=== PATIENT | male | born 1980 | race Caucasian/White ===

== ENCOUNTER → 2017-05-24 | Outpatient (CLI) | payer OTHER ==
[~2017-05-24] MED LIST: ATEN-171 PO; CIPR-255 PO; CYAN1TAB4 PO; MAGN400T6 PO; MULT-262 PO; OXYC-57 PO; PRLSR20 PO; SERT-234 PO
== END | disposition home or self-care (01) ==
LOC: C.LABPVFM 17:44
PROVIDERS: ATTEND Nurse Practitioner Family
DX: J02.9 Acute pharyngitis, unspecified (principal)

== ENCOUNTER → 2017-09-07 | Outpatient (CLI) | payer OTHER ==
--- NOTE | 2017-09-07 12:11 | DIAGNOSTIC IMAGING REPORT ---
R SHOULDER MIN 2 VIEWS ROUTINE HISTORY: 37 years-old Male BACK PAIN acute right shoulder pain status post trauma COMPARISON: Chest radiograph 05/17/2012 TECHNIQUE: 3 views of the right shoulder FINDINGS: No acute fracture, dislocation or significant degenerative changes. Imaged lung mcbride appear clear. No opaque foreign body. IMPRESSION: No acute fracture or dislocation. The above report was generated using voice recognition software. It may contain grammatical, syntax or spelling errors. Electronically signed by: Lan Meléndez M.D. 09/07/2017 12:10 PM Dictated Date/Time: 09/07/2017 12:09 PM
--- NOTE | 2017-09-07 12:14 | DIAGNOSTIC IMAGING REPORT ---
CERVICAL SPINE 2 OR 3 VIEWS HISTORY: 37 years-old Male BACK PAIN acute neck pain COMPARISON: Thoracic lumbar spine radiographs of same day TECHNIQUE: 3 views of the cervical spine FINDINGS: 7 nonrib-bearing cervical type vertebral segments are present. There is no acute fracture, subluxation or significant degenerative changes. No prevertebral soft tissue swelling. Minimal multilevel uncovertebral spurring. Imaged lung apices appear clear. IMPRESSION: No acute fracture or subluxation. The above report was generated using voice recognition software. It may contain grammatical, syntax or spelling errors. Electronically signed by: Lan Meléndez M.D. 09/07/2017 12:12 PM Dictated Date/Time: 09/07/2017 12:11 PM
--- NOTE | 2017-09-07 12:16 | DIAGNOSTIC IMAGING REPORT ---
THORACOLUMBAR SPINE 2 VIEWS HISTORY: 37 years-old Male BACK PAIN acute thoracic and lumbar spine pain COMPARISON: Cervical spine radiographs of same day, CT abdomen and pelvis 10/07/2013 TECHNIQUE: AP and lateral views of the lumbar spine and lower thoracic spine. FINDINGS: There are 5 nonrib-bearing lumbar type vertebral segments present. No acute fracture or subluxation. Mild posterior intervertebral disc space narrowing with spondylitic spurring at L1-L2. The imaged lower thoracic segments appear unremarkable. No spondylolysis or spondylolisthesis identified. Imaged soft tissues appear unremarkable. IMPRESSION: No acute fracture or subluxation. The above report was generated using voice recognition software. It may contain grammatical, syntax or spelling errors. Electronically signed by: Lan Meléndez M.D. 09/07/2017 12:14 PM Dictated Date/Time: 09/07/2017 12:12 PM
== END | disposition home or self-care (01) ==
LOC: C.RADPV 11:45
PROVIDERS: ATTEND Family Medicine
DX: M54.9 Dorsalgia, unspecified (principal); M54.2 Cervicalgia; M25.511 Pain in right shoulder

== ENCOUNTER 2022-06-13 07:57 | Observation (INO) ==
[2022-06-13] MEDS ORDERED: SODIUM CHLORIDE 0.9% 1000ML 1,000 ML IV ONE ×2 (08:37→10:49)
[2022-06-13] MEDS ORDERED: KETOROLAC TROMETHAMINE 15 MG/ML VIAL IV ONE (08:37)
[2022-06-13] MEDS ORDERED: ONDANSETRON INJ 2 MG/ML 2 ML VIAL IV STA (08:40)
--- NOTE | 2022-06-13 08:40 | Emergency Department Note ---
Impression & Plan Urinary frequency, Elevated troponin, Sepsis, Pharyngitis, HTN (hypertension), benign ED Provider Note INFORMANT: Patient and ED PROVIDER(S): Royce Castro MD CHIEF COMPLAINT: Allergic reaction PLAN: Disposition: Admitted Condition: Good Outpatient prescription management: none Referral: None MEDICAL DECISION MAKING: Patient was evaluated. IV was established. Patient was given 1 L normal saline bolus, Toradol, and Zofran. Blood work, urinalysis, and ECG performed. Chest x-ray ordered due to complaints of shortness of breath. Chest x-ray was performed and was negative. The patient was started on additional fluids. His white blood cell count was elevated concerning for infection. Potassium was mildly low and this was repleted. Patient did have an elevated lactate and elevated inflammatory markers. The patient was empirically given antibiotic coverage with Rocephin. He was treated with IV Dilaudid for pain as the Toradol was ineffective. He was found to have a mildly elevated troponin. CT imaging of the neck and abdomen pelvis revealed a pharyngitis but no acute intra- abdominal process. No retropharyngeal or peritonsillar abscesses identified. The patient was found to have a mastoid effusion on the right but has no signs of mastoiditis clinically and his TMs are unremarkable bilaterally. Patient was given a total of 30 mL/kg of saline based upon ideal body weight. There is concerns for sepsis/SIRS but the etiology is not obvious. Cultures are pending. Consultation was made with Dr. Dg Torrez of the [facility] service. Patient was evaluated in the ER for further management. Patient was evaluated in the ER and admitted for further management. Discussed with fishing manager After review of the information above and other included data, I feel the patient requires admission. Triage Nursing notes reviewed and agree them. Vital Signs: reviewed and remarkable for no significant abnormalities Prior /Outside records reviewed: none Differential diagnosis: Pharyngitis, peritonsillar abscess, infection, dehydration, metabolic abnormality, UTI, kidney stone, electrolyte disturbance, hypoxia, cardiac sources, allergic, toxicologic, as well as other pathologies. Diagnostics, as interpreted by me: ECG: Twelve-lead ECG was normal sinus rhythm [address] elevation or depression. No PACs or PVCs Cardiac Monitoring: Cardiac monitoring ordered by me: The patient was placed on continuous cardiac monitoring and observed. It revealed a normal sinus rhythm at 78 beats per minute without ectopy or evidence of dysrhythmia. Medical decision rules: none Imaging studies: Chest x-ray. Findings: A chest x-ray was performed and revealed no pneumothorax, effusion, infiltrate, pulmonary edema, free air under the diaphragm, or wide mediastinum. Impression: No acute disease. CT scan of the neck reveals pharyngitis. No abscess. CT scan of the abdomen and pelvis reveals cholelithiasis but no acute intra- abdominal process. HPI: The patient is a 42 year old male who presents to the Emergency Room with complaints of allergic reaction. Patient was diagnosed clinically with strep pharyngitis as his son was tested positive for strep. Patient developed sore throat and had a televisit last week. He was started on penicillin. The patient also notes the following associated symptoms, continued sore throat, difficulty swallowing, chills, nausea, vomiting, myalgias, back pain, dyspnea on exertion, urinary frequency, weakness. The patient has found no relieving factors. Current pain is rated as 5/10. Patient did not take his morning medication. Pt denies LOC, headache, fevers, visual changes, neck pain, chest pain, abdominal pain,melena, hematochezia, numbness, lymphadenopathy, rash, or other complaints. PAST MEDICAL HISTORY: See Below, HTN PAST SURGICAL HISTORY: See Below, SOCIAL HISTORY: See Below, HOME MEDICATIONS: See Below ALLERGIES: See Below VITALS: See Below PHYSICAL EXAMINATION: GENERAL: Awake, alert, uncomfortable-appearing, in no distress HENT: Normocephalic, atraumatic. Oropharynx unremarkable except for some mild posterior erythema. The uvula is midline. No clinical signs of peritonsillar abscess.. EYES: Normal conjunctiva. Sclera non-icteric. NECK: Inspection normal. Non-tender. Supple. No nuchal rigidity. FROM. No masses. Minimal anterior adenopathy. No gross swelling. No stridor. RESPIRATORY: Clear to auscultation. No wheezes. No rales. Normal respiratory effort. CARDIAC: Normal rate. Normal rhythm. No murmurs. No rubs. Extremities warm and well perfused. Pulses equal. No JVD. GI: Soft, non-distended. No tenderness to palpation. No rebound or guarding. No masses. RECTAL: Deferred. MUSCULOSKELETAL: Atraumatic. Chest examination reveals no tenderness. The back is symmetrical on inspection without obvious abnormality. There is no CVA tenderness to palpation. No joint edema. LOWER EXTREMITIES: Calves are equal size bilaterally and non-tender. No edema. No discoloration. NEURO: Normal sensorium. No sensory or motor deficits noted. SKIN: No rash or jaundice noted. CRITICAL CARE: I have personally spent greater than 30 minutes of critical care time in the direct management of this patient. This includes bedside care, interpretation of diagnostic studies, and testing, discussion with consultants, patient, and family members, and other required patient management activities. This 30 minutes is in excess of all separately billable procedures. Past Med/Surg History Medical History Post concussive syndrome Traumatic brain injury Family History Grandmother (Maternal) Breast cancer Grandmother (Paternal) Myocardial infarction Denies family history of Ovarian cancer Prostate cancer Colorectal cancer Social History Smoking Status: Never smoker Age Started Using Tobacco: 17; Age Quit Using Tobacco: 27; Second Hand Exposure: No; Do You Dip or Chew Tobacco: Yes; Hx Alcohol Use: No Hx Substance Use: No Preferred Language: Swedish Communication Ability: Effective Medical Education Specialist Required: No Beliefs That Will Affect Care: None marital status: Current Living Situation: Family current occupational status: disabled How many Children do You have: 3 Feels Safe at Home: Yes Safety Concerns: Feels Safe At This Time Childhood Exposure to Second-Hand Smoke: Yes Diet: regular caffeine: Yes Dental Care, Regularly: Yes Physical Activity Frequency: 3-4 Times per Week Seatbelt Use: always Sunscreen Use: Yes Assistive Devices: None Allergies Allergies Allergy/AdvReac Type Severity Reaction Status Date / Time Iodinated Contrast Media Allergy Unknown VOMITING Unverified 05/11/22 09:40 zolmitriptan [From Zomig] Allergy Vomiting Unverified 06/13/22 12:10 Gadolinium-Containing AdvReac Verified 06/13/22 12:35 Contrast Medi Home Meds Home Medications Medication Instructions Recorded Confirmed amlodipine 5 mg tablet 5 mg PO BID 06/13/22 06/13/22 omeprazole 20 mg capsule,delayed 40 mg PO DAILY 06/13/22 06/13/22 release Previous Rx's Medication Instructions Recorded atenolol 50 mg tablet 50 mg PO BID #180 tabs 05/11/22 chlorthalidone 25 mg tablet 25 mg PO DAILY #90 tabs 05/11/22 penicillin V potassium 500 mg 500 mg PO BID 10 days #20 tabs 06/07/22 tablet Results & Data (ED) Vital Signs Vital Signs - 24 hr 06/13/22 08:04 06/13/22 08:20 06/13/22 08:44 Temperature 36.8 C Temperature Source Temporal Artery Scan Pulse Rate 106 H 95 H Pulse Rate [Apical] 98 H Respiratory Rate 20 18 Respiratory Effort / Characteristics Non-Labored Spontaneous Respiratory Depth Normal Respiratory Pattern Blood Pressure 170/82 H Blood Pressure [Left Calf] 119/98 Blood Pressure Mean 111 Blood Pressure Mean [Left Calf] 105 Pulse Oximetry 97 98 Oxygen Delivery Method Room Air Room Air Sepsis Recent Fever Within 48 Hours No Sepsis New/Unexplained Change in Mental Status No Sepsis Action Taken by Nursing No Action Required 06/13/22 08:27 06/13/22 09:33 06/13/22 10:42 Temperature Temperature Source Pulse Rate Pulse Rate [Apical] 88 85 Respiratory Rate 18 18 Respiratory Effort / Characteristics Non-Labored Spontaneous Non-Labored Spontaneous Non-Labored Respiratory Depth Normal Normal Normal Respiratory Pattern Regular Blood Pressure Blood Pressure [Left Calf] 130/76 137/79 Blood Pressure Mean Blood Pressure Mean [Left Calf] 94 98 Pulse Oximetry 97 97 Oxygen Delivery Method Room Air Room Air Sepsis Recent Fever Within 48 Hours Sepsis New/Unexplained Change in Mental Status Sepsis Action Taken by Nursing 06/13/22 12:38 Temperature Temperature Source Pulse Rate Pulse Rate [Apical] 75 Respiratory Rate 18 Respiratory Effort / Characteristics Non-Labored Spontaneous Respiratory Depth Normal Respiratory Pattern Blood Pressure Blood Pressure [Left Calf] 137/87 Blood Pressure Mean Blood Pressure Mean [Left Calf] 103 Pulse Oximetry 97 Oxygen Delivery Method Room Air Sepsis Recent Fever Within 48 Hours Sepsis New/Unexplained Change in Mental Status Sepsis Action Taken by Nursing Laboratory Data 06/13/22 08:35 06/13/22 08:35 Lab Results 06/13/22 06/13/22 06/13/22 Range/Units 08:30 08:35 08:35 WBC 14.71 H (4.8-10.8) K/ul RBC 5.24 (4.70-6.10) M/uL Hgb 16.3 (14.0-18.0) g/dl Hct 45.7 (42.0-52.0) % MCV 87.2 (80.0-100.0) fL MCH 31.1 (25.0-34.0) pg MCHC 35.7 (32.0-36.0) g/dL RDW Std Deviation 40.8 (36.4-46.3) fL RDW Coeff of Ysabel 12.8 (11.5-14.5) % Plt Count 246 (130-400) K/uL MPV 9.5 (9.4-12.4) fL Immature Gran % (Auto) 0.7 % Neut % (Auto) 78.9 % Lymph % (Auto) 11.7 % Braxton % (Auto) 7.9 % Eos % (Auto) 0.5 % Baso % (Auto) 0.3 % Neut # (Auto) 11.61 H (1.40-6.50) K/uL Lymph # (Auto) 1.72 (1.2-3.4) K/uL Braxton # (Auto) 1.16 H (0.11-0.59) K/uL Eos # (Auto) 0.07 (0-0.50) K/uL Baso # (Auto) 0.04 (0-0.2) K/uL Immature Gran # (Auto) 0.11 (0.01-0.20) K/uL ESR (0-15) mm/hr Sodium 134 L (136-145) mmol/L Potassium 3.2 L (3.5-5.1) mmol/L Chloride 96 L (98-107) mmol/L Carbon Dioxide 26 (21-32) mmol/L Anion Gap 12 H (3-11) BUN 19 (6-23) mg/dl Creatinine 1.00 (0.6-1.4) mg/dl Est Cr Clr Drug Dosing Not Reportable Est GFR ( Amer) 108.6 ml/min Est GFR (Non-Af Amer) 93.7 ml/min BUN/Creatinine Ratio 19.0 (10-20) Glucose 125 H (70-99(Fasting)) mg/dl Lactate (0.4-2.0) mmol/L Calcium 8.9 (8.6-10.3) mg/dl Total Bilirubin 0.7 (0.2-1.0) mg/dl AST 22 (13-39) U/L ALT 45 (7-52) U/L Alkaline Phosphatase 79 (34-104) U/L Troponin I High Sens 20.2 H (0-20) pg/ml C-Reactive Protein (0-0.5) mg/dl Total Protein 7.9 (6.0-8.3) gm/dl Albumin 4.1 (3.4-5.0) gm/dl Globulin 3.8 (2.5-4.0) gm/dl Albumin/Globulin Ratio 1.1 (0.9-2) Lipase 26 (11-82) U/L Procalcitonin (0-0.5) ng/ml Urine Color Urine Appearance (Clear) Urine pH (4.5-7.5) Ur Specific [place] (1.000-1.030) Urine Protein (Negative) Urine Glucose (UA) (Negative) Urine Ketones (Negative) Urine Blood (Negative) Urine Nitrite (Negative) Urine Bilirubin (Negative) Urine Urobilinogen (Negative) Ur Leukocyte Esterase (Negative) Adenovirus (PCR) Not Detected (NotDetected) B. pertussis DNA (PCR) Not Detected (NotDetected) B.parapertussis DNA PCR Not Detected (NotDetected) Lyme Disease IgG Ab (Negative) Lyme Disease IgM Ab (Negative) C. pneumoniae DNA (PCR) Not Detected (NotDetected) Coronavirus OC43 (PCR) Not Detected (NotDetected) Coronavirus HKU1 (PCR) Not Detected (NotDetected) Coronavirus 229E (PCR) Not Detected (NotDetected) SARS-CoV-2 (PCR) Not Detected (NotDetected) Coronavirus NL63 (PCR) Not Detected (NotDetected) Human Metapneumovir PCR Not Detected (NotDetected) Influenza Type A (PCR) Not Detected (NotDetected) Influenza Type B (PCR) Not Detected (NotDetected) M. pneumoniae (PCR) Not Detected (NotDetected) Parainfluenza 1 (PCR) Not Detected (NotDetected) Parainfluenza 2 (PCR) Not Detected (NotDetected) Parainfluenza 3 (PCR) Not Detected (NotDetected) Parainfluenza 4 (PCR) Not Detected (NotDetected) RSV (PCR) Not Detected (NotDetected) Entero/Rhino (PCR) Not Detected (NotDetected) 06/13/22 06/13/22 06/13/22 Range/Units 09:32 10:22 10:22 WBC (4.8-10.8) K/ul RBC (4.70-6.10) M/uL Hgb (14.0-18.0) g/dl Hct (42.0-52.0) % MCV (80.0-100.0) fL MCH (25.0-34.0) pg MCHC (32.0-36.0) g/dL RDW Std Deviation (36.4-46.3) fL RDW Coeff of Ysabel (11.5-14.5) % Plt Count (130-400) K/uL MPV (9.4-12.4) fL Immature Gran % (Auto) % Neut % (Auto) % Lymph % (Auto) % Braxton % (Auto) % Eos % (Auto) % Baso % (Auto) % Neut # (Auto) (1.40-6.50) K/uL Lymph # (Auto) (1.2-3.4) K/uL Braxton # (Auto) (0.11-0.59) K/uL Eos # (Auto) (0-0.50) K/uL Baso # (Auto) (0-0.2) K/uL Immature Gran # (Auto) (0.01-0.20) K/uL ESR 23 H (0-15) mm/hr Sodium (136-145) mmol/L Potassium (3.5-5.1) mmol/L Chloride (98-107) mmol/L Carbon Dioxide (21-32) mmol/L Anion Gap (3-11) BUN (6-23) mg/dl Creatinine (0.6-1.4) mg/dl Est Cr Clr Drug Dosing Est GFR ( Amer) ml/min Est GFR (Non-Af Amer) ml/min BUN/Creatinine Ratio (10-20) Glucose (70-99(Fasting)) mg/dl Lactate (0.4-2.0) mmol/L Calcium (8.6-10.3) mg/dl Total Bilirubin (0.2-1.0) mg/dl AST (13-39) U/L ALT (7-52) U/L Alkaline Phosphatase (34-104) U/L Troponin I High Sens (0-20) pg/ml C-Reactive Protein 2.99 H (0-0.5) mg/dl Total Protein (6.0-8.3) gm/dl Albumin (3.4-5.0) gm/dl Globulin (2.5-4.0) gm/dl Albumin/Globulin Ratio (0.9-2) Lipase (11-82) U/L Procalcitonin (0-0.5) ng/ml Urine Color Yellow Urine Appearance Clear (Clear) Urine pH 7.5 (4.5-7.5) Ur Specific [place] 1.018 (1.000-1.030) Urine Protein Negative (Negative) Urine Glucose (UA) Negative (Negative) Urine Ketones Negative (Negative) Urine Blood Negative (Negative) Urine Nitrite Negative (Negative) Urine Bilirubin Negative (Negative) Urine Urobilinogen Negative (Negative) Ur Leukocyte Esterase Negative (Negative) Adenovirus (PCR) (NotDetected) B. pertussis DNA (PCR) (NotDetected) B.parapertussis DNA PCR (NotDetected) Lyme Disease IgG Ab (Negative) Lyme Disease IgM Ab (Negative) C. pneumoniae DNA (PCR) (NotDetected) Coronavirus OC43 (PCR) (NotDetected) Coronavirus HKU1 (PCR) (NotDetected) Coronavirus 229E (PCR) (NotDetected) SARS-CoV-2 (PCR) (NotDetected) Coronavirus NL63 (PCR) (NotDetected) Human Metapneumovir PCR (NotDetected) Influenza Type A (PCR) (NotDetected) Influenza Type B (PCR) (NotDetected) M. pneumoniae (PCR) (NotDetected) Parainfluenza 1 (PCR) (NotDetected) Parainfluenza 2 (PCR) (NotDetected) Parainfluenza 3 (PCR) (NotDetected) Parainfluenza 4 (PCR) (NotDetected) RSV (PCR) (NotDetected) Entero/Rhino (PCR) (NotDetected) 06/13/22 06/13/22 06/13/22 Range/Units 10:22 10:28 12:10 WBC (4.8-10.8) K/ul RBC (4.70-6.10) M/uL Hgb (14.0-18.0) g/dl Hct (42.0-52.0) % MCV (80.0-100.0) fL MCH (25.0-34.0) pg MCHC (32.0-36.0) g/dL RDW Std Deviation (36.4-46.3) fL RDW Coeff of Ysabel (11.5-14.5) % Plt Count (130-400) K/uL MPV (9.4-12.4) fL Immature Gran % (Auto) % Neut % (Auto) % Lymph % (Auto) % Braxton % (Auto) % Eos % (Auto) % Baso % (Auto) % Neut # (Auto) (1.40-6.50) K/uL Lymph # (Auto) (1.2-3.4) K/uL Braxton # (Auto) (0.11-0.59) K/uL Eos # (Auto) (0-0.50) K/uL Baso # (Auto) (0-0.2) K/uL Immature Gran # (Auto) (0.01-0.20) K/uL ESR (0-15) mm/hr Sodium (136-145) mmol/L Potassium (3.5-5.1) mmol/L Chloride (98-107) mmol/L Carbon Dioxide (21-32) mmol/L Anion Gap (3-11) BUN (6-23) mg/dl Creatinine (0.6-1.4) mg/dl Est Cr Clr Drug Dosing Est GFR ( Amer) ml/min Est GFR (Non-Af Amer) ml/min BUN/Creatinine Ratio (10-20) Glucose (70-99(Fasting)) mg/dl Lactate 2.8 H* 1.9 (0.4-2.0) mmol/L Calcium (8.6-10.3) mg/dl Total Bilirubin (0.2-1.0) mg/dl AST (13-39) U/L ALT (7-52) U/L Alkaline Phosphatase (34-104) U/L Troponin I High Sens (0-20) pg/ml C-Reactive Protein (0-0.5) mg/dl Total Protein (6.0-8.3) gm/dl Albumin (3.4-5.0) gm/dl Globulin (2.5-4.0) gm/dl Albumin/Globulin Ratio (0.9-2) Lipase (11-82) U/L Procalcitonin 0.10 (0-0.5) ng/ml Urine Color Urine Appearance (Clear) Urine pH (4.5-7.5) Ur Specific [place] (1.000-1.030) Urine Protein (Negative) Urine Glucose (UA) (Negative) Urine Ketones (Negative) Urine Blood (Negative) Urine Nitrite (Negative) Urine Bilirubin (Negative) Urine Urobilinogen (Negative) Ur Leukocyte Esterase (Negative) Adenovirus (PCR) (NotDetected) B. pertussis DNA (PCR) (NotDetected) B.parapertussis DNA PCR (NotDetected) Lyme Disease IgG Ab (Negative) Lyme Disease IgM Ab (Negative) C. pneumoniae DNA (PCR) (NotDetected) Coronavirus OC43 (PCR) (NotDetected) Coronavirus HKU1 (PCR) (NotDetected) Coronavirus 229E (PCR) (NotDetected) SARS-CoV-2 (PCR) (NotDetected) Coronavirus NL63 (PCR) (NotDetected) Human Metapneumovir PCR (NotDetected) Influenza Type A (PCR) (NotDetected) Influenza Type B (PCR) (NotDetected) M. pneumoniae (PCR) (NotDetected) Parainfluenza 1 (PCR) (NotDetected) Parainfluenza 2 (PCR) (NotDetected) Parainfluenza 3 (PCR) (NotDetected) Parainfluenza 4 (PCR) (NotDetected) RSV (PCR) (NotDetected) Entero/Rhino (PCR) (NotDetected) 06/13/22 Range/Units 12:11 WBC (4.8-10.8) K/ul RBC (4.70-6.10) M/uL Hgb (14.0-18.0) g/dl Hct (42.0-52.0) % MCV (80.0-100.0) fL MCH (25.0-34.0) pg MCHC (32.0-36.0) g/dL RDW Std Deviation (36.4-46.3) fL RDW Coeff of Ysabel (11.5-14.5) % Plt Count (130-400) K/uL MPV (9.4-12.4) fL Immature Gran % (Auto) % Neut % (Auto) % Lymph % (Auto) % Braxton % (Auto) % Eos % (Auto) % Baso % (Auto) % Neut # (Auto) (1.40-6.50) K/uL Lymph # (Auto) (1.2-3.4) K/uL Braxton # (Auto) (0.11-0.59) K/uL Eos # (Auto) (0-0.50) K/uL Baso # (Auto) (0-0.2) K/uL Immature Gran # (Auto) (0.01-0.20) K/uL ESR (0-15) mm/hr Sodium (136-145) mmol/L Potassium (3.5-5.1) mmol/L Chloride (98-107) mmol/L Carbon Dioxide (21-32) mmol/L Anion Gap (3-11) BUN (6-23) mg/dl Creatinine (0.6-1.4) mg/dl Est Cr Clr Drug Dosing Est GFR ( Amer) ml/min Est GFR (Non-Af Amer) ml/min BUN/Creatinine Ratio (10-20) Glucose (70-99(Fasting)) mg/dl Lactate (0.4-2.0) mmol/L Calcium (8.6-10.3) mg/dl Total Bilirubin (0.2-1.0) mg/dl AST (13-39) U/L ALT (7-52) U/L Alkaline Phosphatase (34-104) U/L Troponin I High Sens (0-20) pg/ml C-Reactive Protein (0-0.5) mg/dl Total Protein (6.0-8.3) gm/dl Albumin (3.4-5.0) gm/dl Globulin (2.5-4.0) gm/dl Albumin/Globulin Ratio (0.9-2) Lipase (11-82) U/L Procalcitonin (0-0.5) ng/ml Urine Color Urine Appearance (Clear) Urine pH (4.5-7.5) Ur Specific [place] (1.000-1.030) Urine Protein (Negative) Urine Glucose (UA) (Negative) Urine Ketones (Negative) Urine Blood (Negative) Urine Nitrite (Negative) Urine Bilirubin (Negative) Urine Urobilinogen (Negative) Ur Leukocyte Esterase (Negative) Adenovirus (PCR) (NotDetected) B. pertussis DNA (PCR) (NotDetected) B.parapertussis DNA PCR (NotDetected) Lyme Disease IgG Ab Negative (Negative) Lyme Disease IgM Ab Negative (Negative) C. pneumoniae DNA (PCR) (NotDetected) Coronavirus OC43 (PCR) (NotDetected) Coronavirus HKU1 (PCR) (NotDetected) Coronavirus 229E (PCR) (NotDetected) SARS-CoV-2 (PCR) (NotDetected) Coronavirus NL63 (PCR) (NotDetected) Human Metapneumovir PCR (NotDetected) Influenza Type A (PCR) (NotDetected) Influenza Type B (PCR) (NotDetected) M. pneumoniae (PCR) (NotDetected) Parainfluenza 1 (PCR) (NotDetected) Parainfluenza 2 (PCR) (NotDetected) Parainfluenza 3 (PCR) (NotDetected) Parainfluenza 4 (PCR) (NotDetected) RSV (PCR) (NotDetected) Entero/Rhino (PCR) (NotDetected) Administered Medications Hydromorphone HCl (Hydromorphone Inj 0.5 Mg/0.5 Ml Syr) 0.25 mg IV Q4H PRN PRN Reason: Pain, breakthrough 3rd line Stop: 06/27/22 12:43 Last Admin: 06/13/22 13:29 Dose: 0.25 mg Documented By: NMS Vancomycin HCl 2,250 mg/ (Sodium Chloride) 545 mls @ 200 mls/hr IV NOW ONE Stop: 06/13/22 17:58 Last Admin: 06/13/22 16:34 Dose: 200 mls/hr Documented By: GPF Potassium Chloride/Sodium Chloride (Normal Saline W/20 Meq Kcl) 20 meq in 1,000 mls @ 100 mls/hr IV .Q10H MEETA; Protocol Stop: 07/13/22 15:14 Last Admin: 06/13/22 16:34 Dose: 100 mls/hr Documented By: GPF Discontinued Medications Hydromorphone HCl (Hydromorphone Inj 0.5 Mg/0.5 Ml Syr) 0.25 mg IV NOW STA Stop: 06/13/22 09:47 Last Admin: 06/13/22 10:25 Dose: 0.25 mg Documented By: MMZ Sodium Chloride (Nss 1000ml) 1,000 mls @ 999 mls/hr IV .Q1H1M ONE Stop: 06/13/22 09:37 Last Infusion: 06/13/22 10:21 Dose: 0 mls/hr Documented By: Admin: 06/13/22 08:43 Dose: 999 mls/hr Documented By: MMZ Potassium Chloride (K Oj / Wtr) 10 meq in 100 mls @ 100 mls/hr IV ONE ONE; Protocol Stop: 06/13/22 10:48 Last Infusion: 06/13/22 11:45 Dose: 0 mls/hr Documented By: Admin: 06/13/22 10:25 Dose: 100 mls/hr Documented By: MMZ Sodium Chloride (Nss 1000ml) 1,000 mls @ 999 mls/hr IV .Q1H1M ONE Stop: 06/13/22 11:49 Last Infusion: 06/13/22 11:59 Dose: 0 mls/hr Documented By: Admin: 06/13/22 10:55 Dose: 999 mls/hr Documented By: NMS Ceftriaxone Sodium (Rocephin) 2,000 mg in 70 mls @ 140 mls/hr IV NOW STA Stop: 06/13/22 11:29 Last Infusion: 06/13/22 12:21 Dose: 0 mls/hr Documented By: Admin: 06/13/22 11:45 Dose: 140 mls/hr Documented By: NMS Sodium Chloride (Nss 1000ml) 500 mls @ 999 mls/hr IV .Q31M ONE Stop: 06/13/22 12:44 Last Infusion: 06/13/22 13:12 Dose: 0 mls/hr Documented By: Admin: 06/13/22 12:39 Dose: 999 mls/hr Documented By: NATHANIEL Ketorolac Tromethamine (Ketorolac Tromethamine 15 Mg/Ml Vial) 15 mg IV NOW ONE Stop: 06/13/22 08:38 Last Admin: 06/13/22 08:44 Dose: 15 mg Documented By: SHANTE Ondansetron HCl (Ondansetron Inj 2 Mg/Ml 2 Ml Vial) 4 mg IV NOW STA Stop: 06/13/22 08:41 Last Admin: 06/13/22 08:44 Dose: 4 mg Documented By: SHANTE Imaging Data Radiologist's Impression: Chest X-Ray 06/13/22 08:37 XR chest 1V portable HISTORY: Short of breath. Difficulty swallowing. COMPARISON: Chest 11/08/2018. FINDINGS: Small left basilar linear density favors subsegmental atelectasis or scarring. Otherwise, the lungs are clear. No pleural effusions. No pneumothorax. The heart is normal in size. There are low lung volumes. IMPRESSION: No acute process. ACT 112: Negative or not required by law. Electronically signed by: Bakari Nelson M.D. 06/13/2022 8:53 AM Abdomen/Pelvis CT 06/13/22 09:[address] WITHOUT CONTRAST CT DOSE: 2088.88 mGy.cm HISTORY: Acute bilateral flank pain with sepsis flank pain, sepsis TECHNIQUE: Multiaxial CT images of the abdomen and pelvis were performed without contrast. A dose lowering technique was utilized adhering to the principles of ALARA. COMPARISON STUDY: 10/07/2013 FINDINGS: Mild linear subsegmental atelectasis versus scarring of the lingula. There are a few benign-appearing solid nodules left lung base measuring up to 2- 3 mm. No pneumatosis or pneumoperitoneum. Unremarkable unenhanced spleen, pancreas and left adrenal gland. 2.7 cm right adrenal myelolipoma. Hepatic keratosis without evidence of cirrhosis. Cholelithiasis without CT evidence of acute cholecystitis. No renal calculi or hydronephrosis. Slightly increased attenuation of the renal pyramids may be secondary to dehydration. Decompressed urinary bladder with mild wall thickening. Minimal atherosclerosis of the aorta without aneurysm or adenopathy. No bowel obstruction or bowel wall thickening. Trace free pelvic fluid. Mild colonic fecal retention. The appendix is not diagnostically visualized. No secondary signs of acute appendicitis. There is mild wall thickening of the ascending colon which is likely secondary to partial distention. Unremarkable soft tissues. No acute fracture. IMPRESSION: 1. No bowel obstruction or bowel wall thickening identified. 2. Nonvisualization of the appendix. No secondary signs of acute appendicitis. 3. No urolithiasis or hydronephrosis. 4. Hepatic steatosis. 5. Cholelithiasis. ACT 112: Negative or not required by law. The above report was generated using voice recognition software. It may contain grammatical, syntax or spelling errors. Electronically signed by: Evert Meléndez M.D. 06/13/2022 11:06 AM Soft Tissue Neck CT 06/13/22 09:46 CT soft tissue neck wo con CT DOSE: CLINICAL HISTORY: sore throat, sepsis TECHNIQUE: Multiaxial CT images of the neck were performed without contrast. Sagittal and coronal reformations were performed at the workstation by the radiologist. A dose lowering technique was utilized adhering to the principles of ALARA. COMPARISON STUDY: None. FINDINGS: The visualized brain parenchyma and orbits are unremarkable. The pterygopalatine fossa and paratracheal fat spaces are well-maintained. Mild hypertrophy of the adenoid, palatine, lingual tonsils. No definite abscess on this noncontrast study. No masses identified. No significant airway compromise. No pneumothorax. The lung apices are clear. No acute fractures identified. The paranasal sinuses and left mastoid air cells are clear. There is complete opacification of the right middle ear cavity and right mastoid air cells. The parotid and submandibular glands appear symmetric. No lymphadenopathy identified within the neck. Prevertebral soft tissues and the epiglottis are normal in thickness. IMPRESSION: 1. Mild prominence of the adenoid, palatine, and lingual tonsils suggestive of a tonsillitis. 2. No abscess or masses identified within the neck. 3. No significant lymphadenopathy. 4. Right middle ear cavity/mastoid effusion. ACT 112: Negative or not required by law. Electronically signed by: Bakari Nelson M.D. 06/13/2022 11:04 AM Lumbar Spine MRI 06/13/22 12:35 MRI OF THE LUMBAR SPINE WITHOUT IV CONTRAST CLINICAL HISTORY: Low back pain. COMPARISON STUDY: Abdominal CT dated 06/13/2022. TECHNIQUE: MRI of the lumbar spine was performed utilizing various T1 and T2- weighted sequences in the axial and sagittal planes. IV contrast was not administered for this examination. FINDINGS: Lumbar spine: Vertebral body height and alignment are maintained throughout the lumbar spine. Normal marrow signal intensity is preserved throughout the visualized bony structures. The transverse and spinous processes appear intact. There is no evidence of spondylolysis. No destructive bony lesion is seen. Intervertebral discs: Normal in height and signal intensity. Spinal cord: The visualized spinal cord is normal in morphology and signal intensity. The conus medullaris terminates at the level of L1. The nerve roots of the cauda equina are normal in morphology and signal intensity. There is no evidence of epidural fluid collection. L1-L2: Unremarkable. L2-L3: Unremarkable. L3-L4: Unremarkable. L4-L5: Mild facet arthropathy is of no consequence. The central canal and neural foramina are patent. L5-S1: There is a tiny posterior disc osteophyte complex. No acquired compromise of the central canal is seen. Lateral disc bulge contributes to minimal bilateral subarticular stenosis. In conjunction with facet arthropathy, there is minimal bilateral neural foraminal narrowing. Sacrum: The visualized sacrum is normal in morphology and signal intensity. Soft tissues: The paraspinous soft tissues are normal as visualized. The retroperitoneal structures are grossly unremarkable but incompletely evaluated. IMPRESSION: 1. There is no disc herniation, central canal stenosis, or neural foraminal narrowing throughout the lumbar spine. 2. No destructive bony process is seen. Dictated: 06/13/2022 2:26 PM Transcribed: 06/13/2022 2:39 PM Elizabeth [id number] Yinka [id number] Electronically signed by: Nasir Queen M.D. 06/13/2022 2:51 PM Discharge Plan Visit Data Chief Complaint: Allergic Reaction Stated Complaint: SOB, ALLERGIC REACTION TO MEDS ED Provider: Royce Castro Discharge Problem: Urinary frequency, Elevated troponin, Sepsis, Pharyngitis, HTN (hypertension), benign Patient Disposition: Admitted As Inpatient Discharge Instructions Interventions: ED Discharge Assessment Last Done: 06/13/22 13:46
--- NOTE | 2022-06-13 08:54 | XRay Report ---
XR chest 1V portable HISTORY: Short of breath. Difficulty swallowing. COMPARISON: Chest 11/08/2018. FINDINGS: Small left basilar linear density favors subsegmental atelectasis or scarring. Otherwise, t he lungs are clear. No pleural effusions. No pneumothorax. The heart is normal in size. There are low lung volumes. IMPRESSION: No acute process. ACT 112: Negative or not required by law. Electronically signed by: Bakari Nelson M.D. 06/13/2022 8:53 AM
[2022-06-13 08:58] LABS: Basophils # (auto) 0.04 K/uL (0-0.2); Basophils % (auto) 0.3 %; Eosinophils # (auto) 0.07 K/uL (0-0.50); Eosinophils % (auto) 0.5 %; Hematocrit (blood only) 45.7 % (42.0-52.0); Hemoglobin 16.3 g/dl (14.0-18.0); Immature Granulocytes # (auto) 0.11 K/uL (0.01-0.20); Immature Granulocytes % (auto) 0.7 %; Lymphocytes # (auto) 1.72 K/uL (1.2-3.4); Lymphocytes % (auto) 11.7 %; Mean Corpuscular Hemoglobin 31.1 pg (25.0-34.0); Mean Corpuscular Hgb Conc 35.7 g/dL (32.0-36.0); Mean Corpuscular Volume 87.2 fL (80.0-100.0); Mean Platelet Volume 9.5 fL (9.4-12.4); Monocytes # (auto) 1.16 K/uL (0.11-0.59); Monocytes % (auto) 7.9 %; Neutrophils # (auto) 11.61 K/uL (1.40-6.50); Neutrophils % (auto) 78.9 %; Platelet Count 246 K/uL (130-400); RDW Coefficient of Variation 12.8 % (11.5-14.5); RDW Standard Deviation 40.8 fL (36.4-46.3); Red Blood Count 5.24 M/uL (4.70-6.10); White Blood Count 14.71 K/ul (4.8-10.8)
[2022-06-13 09:16] LABS: Alanine Aminotransferase 45 U/L (7-52); Albumin Globulin Ratio 1.1 (0.9-2); Albumin Level 4.1 gm/dl (3.4-5.0); Alkaline Phosphatase 79 U/L (34-104); Anion Gap 12 (3-11); Aspartate Aminotransferase 22 U/L (13-39); Bilirubin,Total 0.7 mg/dl (0.2-1.0); Blood Urea Nitrogen 19 mg/dl (6-23); Calcium 8.9 mg/dl (8.6-10.3); Carbon Dioxide 26 mmol/L (21-32); Chloride 96 mmol/L (98-107); Est GFR (African American) 108.6 ml/min; Est GFR (Non-African American) 93.7 ml/min; Globulin 3.8 gm/dl (2.5-4.0); Glucose 125 mg/dl (70-99(Fasting)); Lipase 26 U/L (11-82); Potassium 3.2 mmol/L (3.5-5.1); Sodium 134 mmol/L (136-145); Total Protein 7.9 gm/dl (6.0-8.3)
[2022-06-13 09:21] LABS: Troponin I High Sensitivity 20.2 pg/ml (0-20)
[2022-06-13 09:44] LABS: Appearance Urine Clear (Clear); Bilirubin Urine Negative (Negative); Blood Urine Negative (Negative); Color Urine Yellow; Glucose Urine UA Negative (Negative); Ketones Urine Negative (Negative); Leukocyte Esterase Urine Negative (Negative); Nitrite Urine Negative (Negative); Protein Urine Negative (Negative); Specific Gravity Urine 1.018 (1.000-1.030); Urobilinogen Urine Negative (Negative); pH Urine 7.5 (4.5-7.5)
[2022-06-13] MEDS ORDERED: HYDROmorphone INJ 0.5 MG/0.5 ML SYR IV STA (09:46)
[2022-06-13] MEDS ORDERED: POTASSIUM CHLORIDE / WTR 10 MEQ/100 ML PLCT IV ONE (09:49)
[2022-06-13 09:54] LABS: Adenovirus PCR Not Detected (NotDetected); Bordetella parapertussis PCR Not Detected (NotDetected); Bordetella pertussis PCR Not Detected (NotDetected); Chlamydia pneumoniae PCR Not Detected (NotDetected); Coronavirus 229E PCR Not Detected (NotDetected); Coronavirus CoV-2 (COVID19)PCR Not Detected (NotDetected); Coronavirus HKU1 PCR Not Detected (NotDetected); Coronavirus NL63 PCR Not Detected (NotDetected); Coronavirus OC43PCR Not Detected (NotDetected); Human Metapneumovirus PCR Not Detected (NotDetected); Influenza A PCR Not Detected (NotDetected); Influenza B PCR Not Detected (NotDetected); Mycoplasma pneumoniae PCR Not Detected (NotDetected); Parainfluenza Virus 1 PCR Not Detected (NotDetected); Parainfluenza Virus 2 PCR Not Detected (NotDetected); Parainfluenza Virus 3 PCR Not Detected (NotDetected); Parainfluenza Virus 4 PCR Not Detected (NotDetected); Respiratory Syncytial VirusPCR Not Detected (NotDetected); Rhinovirus/Enterovirus PCR Not Detected (NotDetected)
[2022-06-13] MEDS ORDERED: cefTRIAXone SODIUM 2,000 MG/70 ML BAG IV STA (11:00)
--- NOTE | 2022-06-13 11:07 | CT Scan Report ---
CT soft tissue neck wo con CT DOSE: CLINICAL HISTORY: sore throat, sepsis TECHNIQUE: Multiaxial CT images of the neck were performed without contrast. Sagittal and coronal ref ormations were performed at the workstation by the radiologist. A dose lowering technique was utiliz ed adhering to the principles of ALARA. COMPARISON STUDY: None. FINDINGS: The visualized brain parenchyma and orbits are unremarkable. The pterygopalatine fossa and paratracheal fat spaces are well-maintained. Mild hypertrophy of the adenoid, palatine, lingual tonsi ls. No definite abscess on this noncontrast study. No masses identified. No significant airway compro mise. No pneumothorax. The lung apices are clear. No acute fractures identified. The paranasal sinuse s and left mastoid air cells are clear. There is complete opacification of the right middle ear cavit y and right mastoid air cells. The parotid and submandibular glands appear symmetric. No lymphadenopa thy identified within the neck. Prevertebral soft tissues and the epiglottis are normal in thickness. IMPRESSION: 1. Mild prominence of the adenoid, palatine, and lingual tonsils suggestive of a tonsillitis. 2. No abscess or masses identified within the neck. 3. No significant lymphadenopathy. 4. Right middle ear cavity/mastoid effusion. ACT 112: Negative or not required by law. Electronically signed by: Bakari Nelson M.D. 06/13/2022 11:04 AM
--- NOTE | 2022-06-13 11:07 | CT Scan Report ---
ABDOMEN AND PELVIS CT WITHOUT CONTRAST CT DOSE: 2088.88 mGy.cm HISTORY: Acute bilateral flank pain with sepsis flank pain, sepsis TECHNIQUE: Multiaxial CT images of the abdomen and pelvis were performed without contrast. A dose lo wering technique was utilized adhering to the principles of ALARA. COMPARISON STUDY: 10/07/2013 FINDINGS: Mild linear subsegmental atelectasis versus scarring of the lingula. There are a few benign -appearing solid nodules left lung base measuring up to 2-3 mm. No pneumatosis or pneumoperitoneum. U nremarkable unenhanced spleen, pancreas and left adrenal gland. 2.7 cm right adrenal myelolipoma. Hep atic keratosis without evidence of cirrhosis. Cholelithiasis without CT evidence of acute cholecystit is. No renal calculi or hydronephrosis. Slightly increased attenuation of the renal pyramids may be secon zechariah to dehydration. Decompressed urinary bladder with mild wall thickening. Minimal atherosclerosis of the aorta without aneurysm or adenopathy. No bowel obstruction or bowel wall thickening. Trace free pelvic fluid. Mild colonic fecal retention. The appendix is not diagnostically visualized. No secondary signs of acute appendicitis. There is mi ld wall thickening of the ascending colon which is likely secondary to partial distention. Unremarkab le soft tissues. No acute fracture. IMPRESSION: 1. No bowel obstruction or bowel wall thickening identified. 2. Nonvisualization of the appendix. No secondary signs of acute appendicitis. 3. No urolithiasis or hydronephrosis. 4. Hepatic steatosis. 5. Cholelithiasis. ACT 112: Negative or not required by law. The above report was generated using voice recognition software. It may contain grammatical, syntax o r spelling errors. Electronically signed by: Evert Meléndez M.D. 06/13/2022 11:06 AM
--- NOTE | 2022-06-13 11:44 | History & Physical Report ---
Date of Service June 13, 2022 Assessment & Plan (1) Leukocytosis: Plan: SIRS, unclear source, acute with evidence of tissue hypoperfusion - Leukocytosis 14.71 with neutrophilic predominance, ESR 23, CRP 2.99 Lactate elevated on admission, received 30 cc of ideal body weight bolus with repeat pending. Subsequent lactate repeat normalized. Blood cultures drawn Rocephin ordered in ER. Given concern for pharyngitis/gram-positive infection and subsequent development of rigors and lumbar pain vancomycin added while pending evaluation for discitis/abscess CTA/P: Mild bladder thickening with uninfected appearing UA. Otherwise no acute findings CTneck:Tonsillitis without abscess or masses, without significant lymphadenopathy, right middle ear effusion. Patient without ear pain clinically - No transaminitis. Plt normal. - hs trop 20.2. Patient denies chest pain. EKG is with normal sinus rhythm, no territorial ST or T wave changes. QTc 418 - respiratory biofire negative Follow blood cultures, MRI and L-spine pending Lyme adjunct added UA uninfected appearing Pro-Craig normal CXR without evidence of pneumonia BioFire respiratory negative ? Seizure versus pseudoseizure activity Patient reports a longstanding history of seizure or seizure-like activity, with 2 episodes of loss consciousness per day which she can sometimes "fight off "but sometimes is unconscious and confused after. Girlfriend reports some shaking which improves after [facility], [facility] are not currently available. Reports that he did not tolerate Keppra or Topamax. Was on another medicine with ID thinks may be Depakote, but has not been on this for many months" had a [facility] the [facility] ". Notes that it has never been clear whether he is having seizures or not, has been told that he has concussion induced or potentially pain induced "brain shutdown". Is agreeable to record request, these are pending. In the meantime we will continue on seizure precautions. If seizure activity is noted, will obtain EEG and load with Depakote otherwise will defer until records/dosing/history are available. The has been requested from [facility] and are pending fax Ativan on-call Seizure precautions GERD Continue PPI convert to Protonix while inpatient Hypertension Continue home meds, normotensive at bedside. Hold if hypotensive. 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 Patient reports that he has chronic memory issues, forgetfulness, and possible seizures versus brain shutdown since this. He has a significant anxiety component for which she does not take any medications. Follow clinically, seizure monitoring and evaluation as above. Hydroxyzine twice daily as needed for anxiety DVT prophylaxis: SCDs, Lovenox Diet: Heart healthy, may advance once MRI is resulted. If significant abnormalities keep n.p.o. Disposition: Medical telemetry CODE STATUS: Full code (2) GERD (gastroesophageal reflux disease): (3) HTN (hypertension), benign: (4) Post concussive syndrome: (5) Elevated troponin: History of Present Illness Primary Care Provider: Chantal Christopher MD 42yo M with a PMHx of contrast allergy (vomiting no rash), GERD, HTN, Post- concussive syndrome who presents with concern for generalized illness, myalgia, back pain, increased inflammatory markers, and leukocytosis with exposure to strep phayngitis and not improving after starting oral penicillin. CT-Neck: 1. Mild prominence of the adenoid, palatine, and lingual tonsils suggestive of a tonsillitis. 2. No abscess or masses identified within the neck. 3. No significant lymphadenopathy. 4. Right middle ear cavity/mastoid effusion. CT-A/P: 1. No bowel obstruction or bowel wall thickening identified. 2. Nonvisualization of the appendix. No secondary signs of acute appendicitis.3. No urolithiasis or hydronephrosis. 4. Hepatic steatosis.5. Cholelithiasis. Son had strep last week, pt subsequently developed sore throat/ pharnyngitis. Called his PCP and based on son having strep+ pharyngitis pt was put on PCN. Took 1 dose of leftover amoxicillin prior to PCN prior to PCP evaluation knowing his son had strep. Improved initially, then suddenly worsened. Continues to have generalized pain/myalgia, chills, nausea/vomiting. Hives, no lip or tongue swelling. Has had increasing back pain. Stas reports 'I had strep throat a while ago. I made an appointment since my kids had it an improved with amoxicillin.' Had one dose left over and took it prior to seeing PCP. Doc prescribed PCN instead and pt got worse, didn't know if it was a PCN allergy but knew he tolerated IM pcn while in the [place]. He had shaking sweating chills at night 2 nights ago. [place] a little improved yesterday daytime, but last night got much worse with fevers, chills, shaking sweat, and severe pain in his lower back which is new and he has not experienced before. 'Every time I pee it hurts way worse afterwords.' Low mid back pain worse in the middle but spreading out towards the flank bilaterally. Shivering, shaking, and with muscle fatigue overnight. This morning he felt like he couldn't get a full breath and was very tired with an extremely sore throat. No cough. He feels slightly shrot of breath when talking 'like a fat traci walking up the steps.' No chest pain at any point 'but throat is sucky and hurts.' sore throat did improve for a day after bein prescribed pcn on 06/07 but quickly worsened in the days after that. No history of back pain or problems before. Hx of shoulder pain from the gym, but no hx of back issues. No weakness in the legs. No numbness or tingling. denies dysuria, but after peeing gets a wave of pain that spread through his back. No difficulty getting stream started, but has difficulty with dribbling recently. Poor PO intake in last 3-4 days. Is hungry. Thrown up 3x without blood/melena. Nause seems to have improved/ WBC high, lactate up, inflammatory markers elevated. Hx HTN --> Atenolol and hctz GERD --> on Omeprazole. Previously on seizure medications, has not taken is 3 months. Has no talked to Dr. Christopher because 'had a falling out with [facility] and [facility]' Did no do well on topamax, not keppra, Has ~ 2 seizures per day. last 15min-1 hour. Goes out and then wakes up and is confused after. 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 [facility] not follow with [facility], has been frustrated with care there. Has some sharpnel in L knee with no issues, not recommended for removal by [facility]. Has been there for 2004. Has had MRIs before and did not have any problems because of this. Medical History: Reviewed Medications: Reviewed Surgical History: Reviewed Family history: Reviewed Allergies: Reviewed. +Contrast allergy. No known antibiotic allergies. Social History: No tobacco use, no etoh use. Code Status: Full Code Allergies Allergy/AdvReac Type Severity Reaction Status Date / Time Iodinated Contrast Media Allergy Unknown VOMITING Unverified 05/11/22 09:40 zolmitriptan [From Zomig] Allergy Vomiting Unverified 06/13/22 12:10 Gadolinium-Containing AdvReac Verified 06/13/22 12:35 Contrast Medi Home Medications Medication Instructions Recorded Confirmed Type atenolol 50 mg tablet 50 mg PO BID #180 tabs 05/11/22 06/13/22 Rx chlorthalidone 25 mg tablet 25 mg PO DAILY #90 tabs 05/11/22 06/13/22 Rx penicillin V potassium 500 mg 500 mg PO BID 10 days #20 tabs 06/07/22 06/13/22 Rx tablet amlodipine 5 mg tablet 5 mg PO BID 06/13/22 06/13/22 History omeprazole 20 mg capsule,delayed 40 mg PO DAILY 06/13/22 06/13/22 History release Past Med/Surg History Medical History Post concussive syndrome Traumatic brain injury Family History Grandmother (Maternal) Breast cancer Grandmother (Paternal) Myocardial infarction Denies family history of Ovarian cancer Prostate cancer Colorectal cancer Social History Smoking Status: Never smoker Age Started Using Tobacco: 17; Age Quit Using Tobacco: 27; Second Hand Exposure: No; Do You Dip or Chew Tobacco: Yes; Hx Alcohol Use: No Hx Substance Use: No Preferred Language: Yi Communication Ability: Effective Machine Grinder Required: No marital status: Current Living Situation: Family and Significant Other current occupational status: disabled How many Children do You have: 3 Feels Safe at Home: Yes Childhood Exposure to Second-Hand Smoke: Yes Diet: regular caffeine: Yes Dental Care, Regularly: Yes Physical Activity Frequency: 3-4 Times per Week Seatbelt Use: always Sunscreen Use: Yes Review of Systems Review of Systems: All systems reviewed & are unremarkable except as noted in HPI & below Physical Exam Physical Exam: General: A&Ox3. NAD. Cooperative. HEENT: Atraumatic, normocephalic. vision/hearing intact. Posterior pharynx erythematous withotu exudate. Pulm: CTAB A&P. -wheezes, -rales, -rhonchi. Symmetrical chest rise. No increased work of breathing. No respiratory distress. Cardiac: RRR, -mrg. Radial pulses intact and symmetrical. Abdominal: Nontender, nondistended, soft. BS present. Spine: Severe TTP overlying lumbar spine with radiation to paraspinal muscles bilaterally. Commercial Service Technician strength, ankle dorsi/plantarflexion, hip flexion, elbow flexion/extension 5/5. Sensation to soft touch intact in hands, feet, and no saddle anesthesia is present. Results & Data Results & Data Vital Signs (Past 12 Hours) Vital Signs Temp Pulse Pulse Resp BP BP Pulse Ox 06/13/22 10:42 85 18 137/79 97 06/13/22 09:33 88 18 130/76 97 06/13/22 08:44 98 H 18 119/98 98 06/13/22 08:20 95 H 06/13/22 08:04 36.8 C 106 H 20 170/82 H 97 O2 Del Method 06/13/22 10:42 Room Air 06/13/22 09:33 Room Air 06/13/22 08:44 Room Air 06/13/22 08:20 06/13/22 08:04 Room Air PG Care Time/CCT Total # of Minutes Spent Total Time Spent with Patient: Total time spent is greater than 50% in coordination of care (as documented) at patient's floor/unit and/or counseling patient: Coding Level of Care Code 32109 INT INP/OBS CARE 3/75MIN Diagnoses Leukocytosis D72.829 GERD (gastroesophageal reflux disease) K21.9 HTN (hypertension), benign I10 Post concussive syndrome F07.81 Elevated troponin R77.8
[2022-06-13] MEDS ORDERED: SODIUM CHLORIDE 0.9% 1000ML 500 ML IV ONE (12:14)
[2022-06-13] MEDS ORDERED: ACETAMINOPHEN 500 MG TAB PO PRN (12:44)
[2022-06-13 13:09] LABS: Lyme Ab IgG w/WB Rflx Negative (Negative); Lyme Ab IgM w/WB Rflx Negative (Negative)
[2022-06-13] MEDS: HYDROmorphone INJ 0.5 MG/0.5 ML SYR IV PRN ×3 (13:29→21:55)
--- NOTE | 2022-06-13 14:53 | Magnetic Resonance Report ---
MRI OF THE LUMBAR SPINE WITHOUT IV CONTRAST CLINICAL HISTORY: Low back pain. COMPARISON STUDY: Abdominal CT dated 06/13/2022. TECHNIQUE: MRI of the lumbar spine was performed utilizing various T1 and T2-weighted sequences in th e axial and sagittal planes. IV contrast was not administered for this examination. FINDINGS: Lumbar spine: Vertebral body height and alignment are maintained throughout the lumbar spine. Normal marrow signal intensity is preserved throughout the visualized bony structures. The transverse and sp inous processes appear intact. There is no evidence of spondylolysis. No destructive bony lesion is s een. Intervertebral discs: Normal in height and signal intensity. Spinal cord: The visualized spinal cord is normal in morphology and signal intensity. The conus medul nicolás terminates at the level of L1. The nerve roots of the cauda equina are normal in morphology and signal intensity. There is no evidence of epidural fluid collection. L1-L2: Unremarkable. L2-L3: Unremarkable. L3-L4: Unremarkable. L4-L5: Mild facet arthropathy is of no consequence. The central canal and neural foramina are patent. L5-S1: There is a tiny posterior disc osteophyte complex. No acquired compromise of the central canal is seen. Lateral disc bulge contributes to minimal bilateral subarticular stenosis. In conjunction w ith facet arthropathy, there is minimal bilateral neural foraminal narrowing. Sacrum: The visualized sacrum is normal in morphology and signal intensity. Soft tissues: The paraspinous soft tissues are normal as visualized. The retroperitoneal structures a re grossly unremarkable but incompletely evaluated. IMPRESSION: 1. There is no disc herniation, central canal stenosis, or neural foraminal narrowing throughout the lumbar spine. 2. No destructive bony process is seen. Dictated: 06/13/2022 2:26 PM Transcribed: 06/13/2022 2:39 PM Elizabeth [id number] RACHID_Familia [id number] Electronically signed by: Nasir Queen M.D. 06/13/2022 2:51 PM
[2022-06-13] MEDS ORDERED: ONDANSETRON INJ 2 MG/ML 2 ML VIAL IV PRN (15:02)
[2022-06-13] MEDS ORDERED: hydrOXYzine HCl 10 MG TAB PO PRN (15:02)
[2022-06-13] MEDS ORDERED: ACETAMINOPHEN 325 MG TAB PO PRN (15:02)
[2022-06-13] MEDS ORDERED: VANCOMYCIN CONSULT ACTIVE PRN (15:02)
[2022-06-13] MEDS ORDERED: LORazepam 2 MG/1 ML VIAL IV PRN (15:02)
[2022-06-13] MEDS ORDERED: VANCOMYCIN HCL 2,250 MG in SODIUM CHLORIDE 0.9% 500 ML IV ONE (15:15)
--- NOTE | 2022-06-13 16:22 | Pharmacy Report ---
Pharmacy PK ABX Note - Date of Service June 13, 2022 - Assessment and Plan Assessment 42 year old M receiving vancomycin/ceftriaxone x1 for treatment of SIRS (unclear source)/tonsillitis?. Pertinent microbiologic data includes: blood culture pending. Day # 1/? of antimicrobial therapy. Plan Vancomycin * Loading dose: 2250 mg IV x 1 * Maintenance dose: 1500 mg IV every 12 hours * Regimen is predicted to achieve target AUC/YESSENIA of 400-600 mg/L.hr * Vancomycin level to be ordered if continued beyond 48 hours Pharmacy will continue to follow and will adjust dose/frequency as necessary. Thank you. Pharmacy has transitioned to AUC monitoring for vancomycin. AUC/YESSENIA is the preferred PK/PD target and is associated with decreased risk of nephrotoxicity compared to traditional trough targets.
[2022-06-13] MEDS: NSS + 20MEQ KCL 20 MEQ/1,000 ML BAG IV SCH (16:34)
[2022-06-13] MEDS: KETOROLAC TROMETHAMINE 10 MG TABLET PO PRN ×2 (16:51→23:36)
[2022-06-13] MEDS: ATENOLOL 50 MG TABLET PO SCH (20:06)
[2022-06-13] MEDS: amLODIPine BESYLATE 5 MG TAB PO SCH (20:08)
[2022-06-14 03:52] LABS: Basophils # (auto) 0.06 K/uL (0-0.2); Basophils % (auto) 0.5 %; Eosinophils # (auto) 0.43 K/uL (0-0.50); Eosinophils % (auto) 3.5 %; Hematocrit (blood only) 42.9 % (42.0-52.0); Hemoglobin 14.9 g/dl (14.0-18.0); Immature Granulocytes # (auto) 0.08 K/uL (0.01-0.20); Immature Granulocytes % (auto) 0.7 %; Lymphocytes # (auto) 3.18 K/uL (1.2-3.4); Lymphocytes % (auto) 26.2 %; Mean Corpuscular Hemoglobin 31.2 pg (25.0-34.0); Mean Corpuscular Hgb Conc 34.7 g/dL (32.0-36.0); Mean Corpuscular Volume 89.7 fL (80.0-100.0); Mean Platelet Volume 9.2 fL (9.4-12.4); Monocytes # (auto) 1.23 K/uL (0.11-0.59); Monocytes % (auto) 10.1 %; Neutrophils # (auto) 7.14 K/uL (1.40-6.50); Platelet Count 214 K/uL (130-400); RDW Coefficient of Variation 12.8 % (11.5-14.5); RDW Standard Deviation 41.9 fL (36.4-46.3); Red Blood Count 4.78 M/uL (4.70-6.10); White Blood Count 12.12 K/ul (4.8-10.8)
[2022-06-14] MEDS ORDERED: VANCOMYCIN HCL 1,500 MG in SODIUM CHLORIDE 0.9% 500 ML IV SCH ×2 (04:00)
[2022-06-14 04:01] LABS: Albumin Globulin Ratio 1.1 (0.9-2); Albumin Level 3.6 gm/dl (3.4-5.0); BUN Creatinine Ratio 15.2 (10-20); Bilirubin,Total 0.5 mg/dl (0.2-1.0); C Reactive Protein 9.02 mg/dl (0-0.5); Calcium 8.7 mg/dl (8.6-10.3); Creatinine Clr Calc Pharmacy 131.4 ml/min; Est GFR (Non-African American) 94.9 ml/min; Globulin 3.4 gm/dl (2.5-4.0); Magnesium 1.7 mg/dl (1.7-2.4); Potassium 3.7 mmol/L (3.5-5.1)
[2022-06-14] MEDS: NSS + 20MEQ KCL 20 MEQ/1,000 ML BAG IV SCH ×2 (04:18→13:42)
[2022-06-14] MEDS: HYDROmorphone INJ 0.5 MG/0.5 ML SYR IV PRN ×3 (04:18→13:13)
--- NOTE | 2022-06-14 07:56 | Hospitalist Progress Note ---
Date of Service June 14, 2022 Assessment & Plan (1) Leukocytosis: Plan: Acute high risk SIRS, unclear source, acute with evidence of tissue hypoperfusion Rocephin/vancomycin concern for pharyngitis/gram-positive infection and subsequent development of rigors and lumbar pain vancomycin added while pending evaluation for discitis/abscess, MRI and L-spine pending CTneck:Tonsillitis without abscess or masses, without significant lymphadenopathy, right middle ear effusion. Patient without ear pain clinically - respiratory biofire negative Lyme adjunct added chronic unclear if stable? Seizure versus pseudoseizure activity Patient reports a longstanding history of seizure or seizure-like activity, with 2 episodes of loss consciousness per day which he can sometimes "fight off "but sometimes is unconscious and confused after. Girlfriend reports some shaking which improves after [facility], Reports that he did not tolerate Keppra or Topamax. Ativan on-call Seizure precautions chronic stable GERD Continue PPI convert to Protonix while inpatient Hypertension chronic stable amlodipine and atenolol Postconcussive syndrome chronic stable Due to IED explosion while in service many years ago. Patient reports that he has chronic memory issues, forgetfulness, and possible seizures versus brain shutdown since this. He has a significant anxiety component Hydroxyzine twice daily as needed for anxiety DVT prophylaxis: SCDs, Lovenox CODE STATUS: Full code (2) GERD (gastroesophageal reflux disease): (3) HTN (hypertension), benign: (4) Post concussive syndrome: (5) Elevated troponin: Admission and Anticipated Discharge Date Admission Date: June 13, 2022 Results & Data Results & Data Vital Signs (Past 12 Hours) Vital Signs Temp Pulse Resp BP BP Pulse Ox O2 Del Method 06/14/22 04:41 98.2 F 70 18 134/86 98 Room Air 06/13/22 23:20 99.7 F H 78 18 137/79 96 Room Air 06/13/22 21:42 Room Air 06/13/22 20:04 98.2 F 66 16 139/76 97 Room Air PG Care Time/CCT Total # of Minutes Spent Total Time Spent with Patient: Total time spent is greater than 50% in coordination of care (as documented) at patient's floor/unit and/or counseling patient: Coding Diagnoses Leukocytosis D72.829 GERD (gastroesophageal reflux disease) K21.9 HTN (hypertension), benign I10 Post concussive syndrome F07.81 Elevated troponin R77.8
[2022-06-14] MEDS ORDERED: CHLORTHALIDONE 25 MG TAB PO SCH (09:00)
[2022-06-14] MEDS ORDERED: PANTOprazole 40 MG TAB PO SCH (09:00)
[2022-06-14] MEDS: ATENOLOL 50 MG TABLET PO SCH (09:01)
[2022-06-14] MEDS: amLODIPine BESYLATE 5 MG TAB PO SCH (09:01)
[2022-06-14] MEDS ORDERED: cefTRIAXone SODIUM 2,000 MG in DEXTROSE 5% 50 ML IV ONE (12:00)
[2022-06-14] MEDS ORDERED: FIRST - Mouthwash BLM 5 ML UDP PO ONE (12:01)
--- NOTE | 2022-06-14 16:38 | Discharge Summary ---
Date of Service June 14, 2022 Admission HPI Per Admitting Provider 42yo M with a PMHx of contrast allergy (vomiting no rash), GERD, HTN, Post- concussive syndrome who presents with concern for generalized illness, myalgia, back pain, increased inflammatory markers, and leukocytosis with exposure to strep phayngitis and not improving after starting oral penicillin. CT-Neck: 1. Mild prominence of the adenoid, palatine, and lingual tonsils suggestive of a tonsillitis. 2. No abscess or masses identified within the neck. 3. No significant lymphadenopathy. 4. Right middle ear cavity/mastoid effusion. CT-A/P: 1. No bowel obstruction or bowel wall thickening identified. 2. Nonvi sualization of the appendix. No secondary signs of acute appendicitis.3. No urolithiasis or hydronephrosis. 4. Hepatic steatosis.5. Cholelithiasis. Son had strep last week, pt subsequently developed sore throat/ pharnyngitis. Called his PCP and based on son having strep+ pharyngitis pt was put on PCN. Took 1 dose of leftover amoxicillin prior to PCN prior to PCP evaluation knowing his son had strep. Improved initially, then suddenly worsened. Continues to have generalized pain/myalgia, chills, nausea/vomiting. Hives, no lip or tongue swelling. Has had increasing back pain. Stas reports 'I had strep throat a while ago. I made an appointment since my kids had it an improved with amoxicillin.' Had one dose left over and took it prior to seeing PCP. Doc prescribed PCN instead and pt got worse, didn't know if it was a PCN allergy but knew he tolerated IM pcn while in the [facility]. He had shaking sweating chills at night 2 nights ago. Scott a little improved yesterday daytime, but last night got much worse with fevers, chills, shaking sweat, and severe pain in his lower back which is new and he has not experienced before. 'Every time I pee it hurts way worse afterwords.' Low mid back pain worse in the middle but spreading out towards the flank bilaterally. Shivering, shaking, and with muscle fatigue overnight. This morning he felt like he couldn't get a full breath and was very tired with an extremely sore throat. No cough. He feels slightly shrot of breath when talking 'like a fat traci walking up the steps.' No chest pain at any point 'but throat is sucky and hurts.' sore th roat did improve for a day after bein prescribed pcn on 06/07 but quickly worsened in the days after that. No history of back pain or problems before. Hx of shoulder pain from the gym, but no hx of back issues. No weakness in the legs. No numbness or tingling. denies dysuria, but after peeing gets a wave of pain that spread through his back. No difficulty getting stream started, but has difficulty with dribbling recently. Poor PO intake in last 3-4 days. Is hungry. Thrown up 3x without blood/melena. Nause seems to have improved/ WBC high, lactate up, inflammatory markers elevated. Hx HTN --> Atenolol and hctz GERD --> on Omeprazole. Previously on seizure medications, has not taken is 3 months. Has no talked to Dr. Christopher because '[facility] falling out with [facility]' Did no do well on t opamax, not keppra, Has ~ 2 seizures per day. last 15min-1 hour. Goes out and then wakes up and is confused after. 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 [facility] not [facility], has been [facility] with care [facility]. Has some sharpnel in L knee with no issues, not [facility] for removal by [facility]. Has been [facility] for 2004. Has had MRIs before and did not have any problems because of this. Medical History: Reviewed Medications: Reviewed Surgical History: Reviewed Family history: Reviewed Allergies: Reviewed. +Contrast allergy. No known antibiotic allergies. Social History: No tobacco use, no etoh use. Code Status: Full Code Principal Diagnosis Pharyngitis Long-term sequelae of closed head injury Discharge Exam Patient awake alert he has some anxiety and pressured speech He has painful swallowing he has some submandibular adenopathy is oropharynx is erythematous without exudates there is no approximation tonsils and there is no enlargement of epiglottis There is no stridorous respiration his lungs are clear Cardiac exam is regular Discharge Data Allergies Allergy/AdvReac Type Severity Reaction Status Date / Time Iodinated Contrast Media Allergy Unknown VOMITING Unverified 05/11/22 09:40 zolmitriptan [From Zomig] Allergy Vomiting Unverified 06/13/22 12:10 Gadolinium-Containing AdvReac Verified 06/13/22 12:35 Contrast Medi Consultations 06/13/22 12:14 ED Decision to Admit Stat Ordered Studies 06/13/22 09:46 CT Abd and Pelvis [CT abd pelvis wo con] Stat CT soft tissue neck wo con Stat 06/13/22 12:35 MRI Lumbar Spine [MR lumbar spine wo con] Urgent Hospital Course (1) Leukocytosis: Acute high risk since mitigated from admission SIRS, unclear source, acute with evidence of tissue hypoperfusion Rocephin/vancomycin concern for pharyngitis/gram-positive infection and subsequent development of rigors and lumbar pain vancomycin discontinued after negative MRSA nasal screen, MRI and L-spine negative for infection CTneck:Tonsillitis without abscess or masses, without significant lymphadenopathy, right middle ear effusion. Patient without ear pain clinically - respiratory biofire negative Lyme adjunct added Patient discharged on cefdinir and oxycodone for pain chronic unclear if stable? Seizure versus pseudoseizure activity Patient reports a longstanding history of seizure or seizure-like activity, with 2 episodes of loss consciousness per day which he can sometimes "fight off "but sometimes is unconscious and confused after. Girlfriend reports some shaking which improves after Has a [facility], Reports that he did not tolerate Keppra or Topamax. 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 Patient reports that he has chronic memory issues, forgetfulness, and possible seizures versus brain shutdown since this. He has a significant anxiety component CODE STATUS: Full code (2) GERD (gastroesophageal reflux disease): (3) HTN (hypertension), benign: (4) Post concussive syndrome: (5) Elevated troponin: Total Time Total Time Spent Total Time Spent (In Minutes): It required greater than 30 minutes to prepare this patient for discharge Discharge Plan Discharge Items Patient Disposition: Home - Self-Care Reason For Visit: SOB, ALLERGIC REACTION TO MEDS Discharge Diagnosis: severe Pharyngitis musculoskeletal back pain Activity: Per Instructions section Activity Comment: gradually increase activity Non-emergency contact: Primary Care Provider Call non-emergency contact if: your symptoms worsen Follow-up/Referrals: Chantal Christopher MD [Primary Care Provider] - 06/16/22 1:30 pm Diet: Regular Diet Comment: soft foods Addtl Attending Provider Instructions: please finish all of your antibiotics use over the counter soothing treatments for your sore throat such as warm tea and honey, cough lozneges with Zinc please see your primary care before the weekend Pending Studies at Discharge: Yes Studies:: your cultures will be analyzed and you will be called if abnormal result Stand-Alone Forms: My [facility], Smoking Cessation Medications and DC Order Prescriptions: New cefdinir 300 mg capsule 300 mg PO Q12H 7 Days Qty: 14 0RF oxycodone 5 mg tablet 5 - 10 mg PO Q8H PRN (Reason: pain) Qty: 20 0RF Continued atenolol 50 mg tablet 50 mg PO BID Qty: 180 1RF chlorthalidone 25 mg tablet 25 mg PO DAILY Qty: 90 1RF amlodipine 5 mg tablet 5 mg PO BID omeprazole 20 mg capsule,delayed release(DR/EC) 40 mg PO DAILY Discontinued penicillin V potassium 500 mg tablet 500 mg PO BID 10 Days Qty: 20 0RF Discharge Orders: Discharge Order (Routine); Ordered 06/14/22 Ordered By: Michael Camacho Admission Data Admit Date/Time: 06/13/22 12:43 Attending Provider: Michael Camacho Admit Provider: Dg Torrez Primary Care Provider: Chantal Christopher Other Providers: Dg Torrez Other Interventions: Discharge Summary Assessment (RN) Last Done: 06/14/22 14:18 Coding Level of Care Code 01074 INP/OBS DISCH >30 MIN Diagnoses Leukocytosis D72.829 GERD (gastroesophageal reflux disease) K21.9 HTN (hypertension), benign I10 Post concussive syndrome F07.81 Elevated troponin R77.8
--- NOTE | 2022-06-14 16:52 | Electrocardiogram Report ---
Test Reason : Blood Pressure : / mmHG Vent. Rate : 088 BPM Atrial Rate : 088 BPM P-R Int : 140 ms QRS Dur : 086 ms QT Int : 346 ms P-R-T Axes : 008 004 023 degrees QTc Int : 418 ms Normal sinus rhythm Moderate voltage criteria for LVH, may be normal variant Borderline ECG No previous ECGs available Confirmed by Jhon Tirado ([id number]) on 06/14/2022 4:52:25 PM Referred By: REFERRED SELF Confirmed By:Jhon Tirado
== END 2022-06-14 15:14 | disposition home or self-care (01) ==
LOC: ED 07:57 → 2E 07:57 → SUATTDRO 12:43 → 2E 13:46 → 4W 15:43